=== PATIENT | female | born 1980 | race Caucasian/White ===

== ENCOUNTER 2017-10-18 19:36 | Emergency (ER) | payer OTHER ==
[~2017-10-18] VITALS: Ht 167.6 cm; Wt 78.5 kg
[2017-10-18 19:56] VITALS: Ht 167.6 cm; Wt 78.5 kg
[2017-10-18 21:05] VITALS: BP 132/68
== END 2017-10-18 21:06 | disposition home or self-care (01) ==
LOC: ED 19:36
DX: J03.90 Acute tonsillitis, unspecified (principal)
CPT/HCPCS: J7512